=== PATIENT | male | born 1980 | race Caucasian/White ===

== ENCOUNTER 2019-01-23 00:13 | Emergency (ER) | payer MEDICAID, MEDICARE ==
[~2019-01-23] VITALS: Ht 185.4 cm; Wt 95.3 kg
--- NOTE | 2019-01-23 00:30 | NUR ---
PT PRESENTED TO THE ER WITH A C/O RT FOOT PAIN. PT STATED THAT IT STARTED ON THE ARCH AND NOW IT'S AT THE TOP OF THE FOOT. PT DENIES TRAUMA.
[2019-01-23] MEDS ORDERED: ACETAMINOPHEN ES 500 MG TABLET PO ONE (01:00)
[2019-01-23] MEDS ORDERED: ACETAMINOPHEN ES 500 MG TABLET ONE (01:05)
--- NOTE | 2019-01-23 01:20 | NUR ---
PT APPEARS TO BE RESTING COMFORTABLY WITH NO S/S OF PAIN OR DISTRESS.
[2019-01-23] MEDS ORDERED: IBUPROFEN 400 MG TABLET ONE (01:54)
[2019-01-23] MEDS ORDERED: IBUPROFEN 400 MG TABLET PO ONE (02:00)
[2019-01-23 02:20] VITALS: BP 124/78
== END 2019-01-23 02:22 | disposition home or self-care (01) ==
LOC: ER 00:15
DX: R60.0 Localized edema (principal); M79.671 Pain in right foot
CPT/HCPCS: 73630-TC